=== PATIENT | male | born 1965 ===

== ENCOUNTER 2025-03-04 13:15 | Outpatient (AMB) | payer BC, SELFPAY ==
--- NOTE | 2025-03-04 13:33 | AM.OFFWIN_ITS ---
Intake Vital Signs 03/04/25 13:41 Height 5 ft 6 in Weight 124 lb 6 oz BMI 20.1 BP 172/90 H Blood Pressure Location Rt brachial Position Sitting Pulse 81 Pulse Source Pulse Oximeter Temp 98.1 F Temp Source Oral Pulse Oximetry (%) 98 Oxygen Delivery Method Room Air Intake Visit Reasons: [employer] Fall, back pain Intake Note: Patient presents for tailbone & lower back pain that radiates to right side & mid back x8 days Allergies shellfish derived (shellfish) Allergy (Intermediate, Verified 03/04/25 13:39) Hives Do you need a note to return to daycare/school/sports/work: No HPI HPI Comments History of Present Illness Details 59 y/o Male patient who presents to the walk in clinic with c/o Lower b ack and Tailbone Pain after he fell at home ~ 8 days ago. Pt was standing over the Toilet urinating when he fell back-wards landing on his Buttock. Denies LOC or head strike. He has been taking OTC pain medications with minimal relief. [facility] Medical History (Updated 03/04/25 @ 14:53 by Adelaida Ramirez NP) Coccygeal pain Review of Systems Const All systems reviewed & are unremarkable except as noted in HPI and below Physical Exam Vital Signs: Last Vital Signs Temp 98.1 F 03/04/25 13:41 Pulse 81 03/04/25 13:41 BP 172/90 H 03/04/25 13:41 Pulse Ox 98 03/04/25 13:41 Oxygen Delivery Method Room Air 03/04/25 13:41 BMI result Body Mass Index 20.1 Const General: no acute distress; No comfortable Orientation/consciousness: patient oriented x3 Back/Spine/Pelvis Back: back tenderness Pelvis: buttock tenderness on the right Sacrum: tenderness midline Coccyx: Coccyx tenderness present on direct palpation Neuro General: patient oriented x3, gait normal and moves all extremities Psych Speech and movement: Normal speech and movement present Assessment & Plan Assessment & Plan (1) Coccygeal pain: Code(s): M53.3 - Sacrococcygeal disorders, not elsewhere classified Plan: NSAIDs and Acetaminophen for pain relief. Apply Ice/Heat to area Advised to use Donut-shaped cushions when sitting. Coding Level of Care Code New Pt Level 4 (23960) Diagnoses Coccygeal pain M53.3 Time Spent (min) 20
[2025-03-04 13:41] VITALS: BP 172/90; PULSE 81; TEMP 36.7; O2SAT 98; BMI 20.1
== END 2025-03-04 14:26 | disposition home or self-care (01) ==
PROVIDERS: Visit Provider Nurse Practitioner Family
DX: M53.3 Sacrococcygeal disorders, not elsewhere classified (principal)